=== PATIENT | male | born 1965 | race Two or more races ===

== ENCOUNTER 2020-05-26 08:55 | Outpatient (CLI) | payer OTHER | END 2020-05-26 09:34 | disposition home or self-care (01) | LOC: LAB 08:55 → EDSEX 08:55 → LAB 09:34 | PROVIDERS: ATTEND Urology | DX: R97.20 Elevated prostate specific antigen [PSA] (principal); N20.0 Calculus of kidney ==

== ENCOUNTER → 2020-05-27 08:37 | Outpatient (CLI) | payer OTHER | END | disposition home or self-care (01) | LOC: LAB 08:37 → EDSEX 08:37 | PROVIDERS: ATTEND Urology | DX: R97.21 Rising PSA following treatment for malignant neoplasm of prostate (principal) ==

== ENCOUNTER 2020-06-22 15:12 | Outpatient (CLI) | payer OTHER | END 2020-06-22 15:18 | disposition home or self-care (01) | LOC: RAD 15:12 | PROVIDERS: ATTEND Urology | DX: Z01.811 Encounter for preprocedural respiratory examination (principal) ==

== ENCOUNTER 2020-06-23 16:23 | Inpatient (IN) | payer OTHER ==
[2020-06-28] MEDS ORDERED: TAMS0.4C PO (10:53)
[2020-06-28] MEDS ORDERED: CIPRO500 MG PO (10:53)
[2020-06-28] MEDS ORDERED: FINESTERIDE PO (10:54)
[2020-06-30] MEDS ORDERED: FINASTERIDE5 MG PO (14:44)
[2020-06-30] MEDS ORDERED: INTEGRA F CAPS1 EAC1 PO (14:44)
[2020-06-30] MEDS ORDERED: PYRIDOXINE HCL100 MG PO (14:44)
== END 2020-07-01 08:00 | disposition home or self-care (01) | DRG 667 ==
LOC: ADM 06-28 08:30 → O/R 06-29 07:00 → EDSTATUS 06-29 08:30 → CIR.AMB 06-29 08:30 → O/R 06-30 08:11 → CIR.AMB 06-30 08:11 → SURG 06-30 08:44 → O/R 06-30 08:44 → SURG 07-01 09:37
PROVIDERS: ADMIT Urology; ATTEND Urology
PROC: 0TCB8ZZ Extirpation of Matter from Bladder, Via Natural or Artificial Opening Endoscopic (ICD-10-PCS; 2020-06-29)
PROC: 0VT08ZZ Resection of Prostate, Via Natural or Artificial Opening Endoscopic (ICD-10-PCS; principal; 2020-06-29 11:30)
DX: N21.0 Calculus in bladder (principal); N40.1 Benign prostatic hyperplasia with lower urinary tract symptoms; R97.20 Elevated prostate specific antigen [PSA]; R33.8 Other retention of urine

== ENCOUNTER → 2020-07-04 07:30 | Outpatient (CLI) | payer OTHER ==
[~2020-07-04 07:30] MED LIST: ABANEU-SL TABL1 EACH; CIPRO500 MG PO; FINASTERIDE5 MG PO; FINESTERIDE PO; INTEGRA F CAPS1 EAC1 PO; PYRIDOXINE HCL100 MG PO; TAMS0.4C PO
== END | disposition home or self-care (01) ==
LOC: LAB 07:30
PROVIDERS: ATTEND Urology
DX: N30.00 Acute cystitis without hematuria (principal)

== ENCOUNTER 2020-07-12 15:19 | Outpatient (CLI) | payer OTHER ==
[~2020-07-12 15:19] MED LIST changes: -ABANEU-SL TABL1 EACH
== END 2020-07-12 18:00 | disposition home or self-care (01) ==
LOC: LAB 15:19
PROVIDERS: ATTEND Urology
DX: N30.00 Acute cystitis without hematuria (principal)

== ENCOUNTER 2020-07-15 11:21 | Inpatient (IN) | payer OTHER ==
[~2020-07-15] VITALS: Ht 177.8 cm; Wt 131.5 kg
[2020-07-19] MEDS ORDERED: ABANEU-SL TABL1 EACH (08:08)
== END 2020-07-27 10:41 | disposition home or self-care (01) | DRG 694 ==
LOC: SEC-K 11:21 → SURH 12:45
PROVIDERS: ADMIT Urology; ATTEND Urology
DX: N21.0 Calculus in bladder (principal); N39.0 Urinary tract infection, site not specified; Z16.29 Resistance to other single specified antibiotic; N40.1 Benign prostatic hyperplasia with lower urinary tract symptoms; E21.2 Other hyperparathyroidism; E66.01 Morbid (severe) obesity due to excess calories; B96.89 Other specified bacterial agents as the cause of diseases classified elsewhere; Z20.828 Contact with and (suspected) exposure to other viral communicable diseases

== ENCOUNTER 2020-08-11 10:09 | Outpatient (CLI) | payer OTHER ==
[~2020-08-11 10:09] MED LIST changes: +ABANEU-SL TABL1 EACH
== END 2020-08-11 10:14 | disposition home or self-care (01) ==
LOC: LAB 10:09
PROVIDERS: ATTEND Urology
DX: N30.00 Acute cystitis without hematuria (principal)

== ENCOUNTER → 2020-10-27 09:21 | Outpatient (CLI) | payer OTHER | END | disposition home or self-care (01) | LOC: LAB 09:21 | PROVIDERS: ATTEND Urology | DX: N30.00 Acute cystitis without hematuria (principal) ==

== ENCOUNTER 2021-07-17 10:07 | Outpatient (CLI) | payer OTHER | END 2021-07-17 10:19 | disposition home or self-care (01) | LOC: RAD 10:07 | PROVIDERS: ATTEND Urology | DX: N20.0 Calculus of kidney (principal) ==

== ENCOUNTER 2021-08-08 07:16 | Outpatient (CLI) | payer OTHER | END 2021-08-08 07:32 | disposition home or self-care (01) | LOC: RAD 07:16 | PROVIDERS: ATTEND Urology | DX: M25.552 Pain in left hip (principal); M25.551 Pain in right hip; R10.2 Pelvic and perineal pain ==

== ENCOUNTER 2021-10-09 07:09 | Outpatient (CLI) | payer OTHER | END 2021-10-09 07:19 | disposition home or self-care (01) | LOC: RAD 07:09 | PROVIDERS: ATTEND Urology | DX: N20.0 Calculus of kidney (principal) ==

== ENCOUNTER 2021-11-28 09:50 | Outpatient (CLI) | payer OTHER | END 2021-11-28 10:01 | disposition home or self-care (01) | LOC: LAB 09:50 | PROVIDERS: ATTEND Urology | DX: N30.00 Acute cystitis without hematuria (principal) ==

== ENCOUNTER 2021-11-30 10:28 | Outpatient (CLI) | payer OTHER | END 2021-11-30 10:35 | disposition home or self-care (01) | LOC: LAB 10:28 | PROVIDERS: ATTEND Urology | DX: N21.0 Calculus in bladder (principal); N39.0 Urinary tract infection, site not specified ==

== ENCOUNTER 2022-02-07 10:54 | Outpatient (CLI) | payer OTHER | END 2022-02-07 10:55 | disposition home or self-care (01) | LOC: NUCLEAR 10:54 | PROVIDERS: ATTEND Urology | DX: E21.3 Hyperparathyroidism, unspecified (principal) ==

== ENCOUNTER 2022-05-18 07:07 | Outpatient (CLI) | payer OTHER | END 2022-05-18 07:15 | disposition home or self-care (01) | LOC: RAD 07:07 | PROVIDERS: ATTEND Surgery | DX: E21.0 Primary hyperparathyroidism (principal) ==

== ENCOUNTER 2022-05-23 05:15 | Day surgery (SDC) | payer OTHER ==
[~2022-05-23] VITALS: Ht 177.8 cm; Wt 145.1 kg
[2022-05-23] MEDS ORDERED: PERCOCET 5-3251 EACH PO (10:11)
== END 2022-05-23 11:40 | disposition home or self-care (01) ==
LOC: CIR.AMB 05:15
PROVIDERS: ATTEND Surgery
DX: D35.1 Benign neoplasm of parathyroid gland (principal); E21.0 Primary hyperparathyroidism; Z20.822 Contact with and (suspected) exposure to COVID-19; Z86.16 Personal history of COVID-19; E66.01 Morbid (severe) obesity due to excess calories

== ENCOUNTER 2022-05-28 09:53 | Emergency (ER) | payer OTHER ==
[~2022-05-28] VITALS: Ht 177.8 cm; Wt 145.1 kg
[~2022-05-28 09:53] MED LIST changes: +PERCOCET 5-3251 EACH PO
== END 2022-05-29 | disposition home or self-care (01) ==
LOC: ER 09:53
DX: T81.89XA Other complications of procedures, not elsewhere classified, initial encounter (principal); Z98.890 Other specified postprocedural states

== ENCOUNTER 2024-05-15 09:40 | Outpatient (CLI) | payer OTHER | END 2024-05-15 09:54 | disposition home or self-care (01) | LOC: RAD 09:40 | DX: N40.0 Benign prostatic hyperplasia without lower urinary tract symptoms (principal); N20.0 Calculus of kidney ==

== ENCOUNTER 2024-09-02 07:25 | Outpatient (CLI) | payer OTHER | END 2024-09-02 07:40 | disposition home or self-care (01) | LOC: TOM 07:25 | PROVIDERS: ATTEND Urology | DX: R31.21 Asymptomatic microscopic hematuria (principal) ==

== ENCOUNTER 2025-04-28 07:59 | Outpatient (CLI) | payer OTHER | END 2025-04-28 08:08 | disposition home or self-care (01) | LOC: SONOGRAMA 07:59 | PROVIDERS: ATTEND Internal Medicine Gastroenterology | DX: K76.0 Fatty (change of) liver, not elsewhere classified (principal) ==

== ENCOUNTER 2025-05-11 07:07 | Outpatient (CLI) | payer OTHER | END 2025-05-11 07:10 | disposition home or self-care (01) | LOC: TOM 07:07 | PROVIDERS: ATTEND Surgery | DX: K43.2 Incisional hernia without obstruction or gangrene (principal) ==